=== PATIENT | male | born 1970 | race Caucasian/White ===

== ENCOUNTER 2016-11-14 15:32 | Emergency (ER) | payer BC ==
[~2016-11-14] VITALS: Ht 182.9 cm; Wt 109.3 kg
[~2016-11-14 15:32] MED LIST: ALLOPURINOL300 M1 FT; ELIQUIS5 MG PO; LISINOPRIL10 MG PO; METFORMIN ER500 MG PO; PRAVACHOL20 MG PO
--- OUTSIDE RECORDS SUMMARY | 2016-11-14 15:39 | External Medical Summary Rpt ---
Author Author [employer] Organization [employer] Address Unknown Phone Unavailable Purpose Continuity of Care Document - through 2016
--- OUTSIDE RECORDS SUMMARY | 2016-11-14 15:39 | External Medical Summary Rpt ---
Author Author DEEPALI Calvillo, DEEPALI [employer] Organization [employer] Address Unknown Phone Unavailable
--- OUTSIDE RECORDS SUMMARY | 2016-11-14 15:39 | External Medical Summary Rpt ---
Author Author , Organization [employer] Address Unknown Phone Unavailable Purpose Continuity of Care Document - 01-04-2007 through 2016 Immunization Name Date Route CVX Reacti Commen Provid Is Given on t er Refuse d Hep B, Histor H109 No adult 2007 ical Inform ation - Source Unspec ified Hep B, Histor H109 No adult 2006 ical Inform ation - Source Unspec ified Hep B, Histor H109 No adult 2006 ical Inform ation - Source Unspec ified
--- NOTE | 2016-11-14 15:47 | Urgent Treatment Center Report ---
History of Present Issue Date/Time Seen by Provider 11/14/16 9077 Visit Reason Pt arrived:Walked Presenting Problem:PT C/O FEVER AND CHILLS Location if Accident: Onset of symptoms date/time:/ or onset unknown for:MEDICAL HX UNKNOWN Have you (or family members/close friends) recently traveled outside the [place]? N If Yes, where/when: Have you had exposure to infectious disease within the past month? TB? Other? Specify: Source patient Exam Limitations no limitations Comment 46-year-old male presents for fever, chills, cough, left ear pain ,scratchy throat, body aches, sinus pressure and green nasal congestion for a week or so. Patient states today he woke up and just didn't feel good was that of family gathering family takes his temperature and it was 103.6 he was given 800 mg of ibuprofen. ALLERGIES Coded Allergies: Sulfa (Sulfonamide Antibiotics) (Intermediate, I-HIVES 01/24/16) Penicillins (01/24/16) Home Medications Reported Medications Pravastatin Sodium (Pravachol) 20 MG PO QHS #30 Apixaban (Eliquis) 5 MG PO BID #60 Lisinopril 10 MG PO DAILY #90 Allopurinol 300 MG FT DAILY #90 METFORMIN HCL (Metformin HCl ER) 500 MG PO BID #360 History Medical History General CAD? No Angina: No ID: No Hypertension? Yes Hyperlipidemia? No CHF? No DVT? No PE? No COPD? No Asthma? No Anemia? No GERD? No Gastric ulcers? No GI Bleed? No Hernia? No Thyroid Problems? No Hypothyroidism? No CVA? No Seizures? No Diabetes? Yes Insulin Dependent: No Insulin Pump: No Home FSBS? Yes Renal Insuffiency? No UTI? No Stones? No BPH? No GB Disease: No Nephritic Syndrome? No Asplenia? No Hepatitis? No Sickle Cell Disease? No Arthritis? No Migraines? No Cataracts? No Glaucoma? No MRSA? No HIV? No TB? No Anxiety? No Depression? No Cancer? No Immunization HX DT/Tetanus 1-4 Years Ago Surgical Hx Previous Surgery?Y APPENDECTOMY VASECTOMY Social History Alcohol Alcohol: No Review of Systems All Other Systems Reviewed and Negative Constitutional see HPI, chills, fever ENT see HPI, ear pain. Physical Exam Vital Signs Vital Signs Date Time Temp Pulse Resp B/P Pulse O2 O2 Flow FiO2 Ox Delivery Rate 11/14 1547 98.2 110 16 115/80 96 - WBC >12,000 or <4,000 or 10% bands? 2 or more SIRS Criteria Met? B/P:115/80 MAP:91 Creatinine >2.0? UA output<0.5ml/kg/hr for 2 hrs? Platelet count >100,000? Lactate >2.0mmol/1? INR >1.2 or PTT > than 60 sec? Evidence of Organ Dysfunction? Provider documented clinical suspician of infection? Sepsis Criteria Count: 1 Sepsis Risk: General Appearance normal appearance, mild distress, fever Eye Exam - bilateral eye normal exam, bilateral eye PERRL, bilateral eye EOMI Ear, Nose, Throat abnormal TM (L), sinus pain/drainage, nasal congestion, pharyngeal erythema Neck normal inspection, full range of motion Respiratory Status Yes: trachea midline, chest symmetrical, non tender chest. No: respiratory distress. Lung Sounds bilateral: normal breath sounds, lungs clear. Cardiovascular normal exam, regular rate/rhythm Peripheral Pulses Pulses normal Yes Gastrointestinal normal bowel sounds Neurologic alert, normal exam, oriented x 3 Medical Decision Making LABS/Meds/Orders Pt receiving controlled substance in ED? No Results/Orders Laboratory Tests 11/14/16 1620: Sodium 136, Potassium 4.3, Chloride 99, Carbon Dioxide 27, BUN 16, Creatinine 0.9, Estimated Creat Clear 160, Estimated GFR (MDRD) 91, Glucose 179 H, Calcium 9.2, Total Bilirubin 0.6, AST 19, ALT 37, Alkaline Phosphatase 116, Total Protein 8.0, Albumin 3.7, Globulin 4.3 H, Albumin/Globulin Ratio 0.9 L, WBC 10.7, RBC 5.15, Hgb 13.3 L, Hct 41.8 L, MCV 81.3 L, RDW 15.7, Plt Count 241, MPV 6.1 L, Gran % 80.0, Gran # 8.6 H, Lymphocytes % 13.8, Monocytes % 4.7, Eosinophils % 1.2, Basophils % 0.2, Lymphocytes # 1.5, Monocytes # 0.5, Eosinophils # 0.1, Basophils # 0.0, PUBS MCHC 31.7 L, MCH 25.8 L 11/14/16 1550: Sodium Cancelled, Potassium Cancelled, Chloride Cancelled, Carbon Dioxide Cancelled, BUN Cancelled, Creatinine Cancelled, Estimated Creat Clear Cancelled, Estimated GFR (MDRD) Cancelled, Glucose Cancelled, Calcium Cancelled, Total Bilirubin Cancelled, AST Cancelled, ALT Cancelled, Alkaline Phosphatase Cancelled, Total Protein Cancelled, Albumin Cancelled, Globulin Cancelled, Albumin/Globulin Ratio Cancelled, WBC Cancelled, RBC Cancelled, Hgb Cancelled, Hct Cancelled, MCV Cancelled, RDW Cancelled, Plt Count Cancelled, Gran % Cancelled, Gran # Cancelled, Lymphocytes % Cancelled, Eosinophils % Cancelled, Basophils % Cancelled, Lymphocytes # Cancelled, Eosinophils # Cancelled, Basophils # Cancelled, PUBS MCHC Cancelled, MCH Cancelled, Influenza Type A Ag NOT DETECTED, Influenza Type B Ag NOT DETECTED, Group A Strep Screen NOT DETECTED Orders Procedure Date/time Status CBC WITH AUTO DIFF 11/14 161 Complete CHEM 12 PROFILE 11/14 1610 Complete UTC STREP SCREEN 11/14 1550 Complete UTC FLU A,B 11/14 1550 Complete Departure Departure Time of Disposition 165 Disposition DC Home or Self Care(routine) Clinical Impression Primary Impression: Acute sinusitis Qualifiers: Sinusitis location: maxillary Recurrence: non-recurrent Qualified Code: J01.00 - Acute maxillary sinusitis, unspecified Secondary Impressions: Fever Qualifiers: Fever type: unspecified Qualified Code: R50.9 - Fever, unspecified Condition STABLE Patient Instructions DI for Fever (Symptom) -- Adult, DI for Sinusitis Additional Instructions Tylenol and Motrin as needed for fever or pain. Signs and symptoms worsen return or be seen in the ER follow up with PCP this week Discharge Counseling Counseled pt/family regarding diagnosis, test results, medications/RX, home care, follow up needs Prescriptions Current Visit Scripts Fluticasone Propionate (Flonase Allergy Relief) 9.9 ML NS DAILY 14 Days Azithromycin (Zithromax) 250 MG PO DAILY #6 TAB USE DIRECTED. Comments No work tonight precautions advised at 1651
[2016-11-14] MEDS ORDERED: FLONASE ALLERG9.9 ML NS (16:02)
[2016-11-14] MEDS ORDERED: ZITHROMAX Z-PA250 M2 PO (16:02)
[2016-11-14 16:04] LABS: UTC STREP SCREEN NOT DETECTED (NOTDETECTED)
[2016-11-14 16:38] LABS: HEMOGLOBIN 13.3 g/dL (14.1-18.0); LYMPH # 1.5 K/mm3 (0.7-4.5); LYMPH % 13.8 % (10-50)
[2016-11-14 16:58] VITALS: BP 115/80
== END 2016-11-14 16:58 | disposition home or self-care (01) ==
LOC: UTC 15:32
PROVIDERS: Nurse Practitioner Family
DX: J01.00 Acute maxillary sinusitis, unspecified (principal); I10 Essential (primary) hypertension; E11.9 Type 2 diabetes mellitus without complications

== ENCOUNTER 2017-05-14 21:11 | Observation (INO) | payer BC ==
[~2017-05-14] VITALS: Ht 182.9 cm; Wt 109.9 kg
[~2017-05-14 21:11] MED LIST changes: +FLONASE ALLERG9.9 ML NS; +ZITHROMAX Z-PA250 M2 PO
[2017-05-14 21:14] VITALS: BP 149/105
[2017-05-14] MEDS ORDERED: JARDIANCE25 MG PO (21:23)
[2017-05-14] MEDS ORDERED: ASPIRIN ADULT L81 M2 PO (21:25)
[2017-05-14 21:34] LABS: HEMOGLOBIN 14.6 g/dL (14.1-18.0); LYMPH # 2.5 K/mm3 (0.7-4.5); LYMPH % 31.9 % (10-50)
--- NOTE | 2017-05-14 21:37 | Emergency Room Report ---
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 N Clinical Suspician of Infection? N Mental Status: 1 - Regular (Normal Baseline) Sepsis Risk:Possible Sepsis Risk Have you (or family members/close friends) recently traveled outside the [place]? N If Yes, where/when: Have you had exposure to infectious disease within the past month? N TB? Other? Specify: Source patient, RN notes reviewed, family, old records Exam Limitations no limitations Comment pt with tingling episodes but also with chest pain which was central and described as mm tightness Cardiac Chest Pain Chest pain indicative of cardiac Yes Timing/Duration 1-3 hours, gone now Severity/Quality moderate, tightness Location central Chest Pain Radiation no radiation Activities at Onset light activity Nitro Today/Relief no nitro taken today Aspirin Treatment Today 81 mg x 4, provided by ED Beta tico treatment today no beta tico taken Cardiac risk factors Elevated lipids, Diabetes, + family history Prior Workup/Intervention stress test Timing/Duration this evening Severity moderate ALLERGIES Coded Allergies: Sulfa (Sulfonamide Antibiotics) (Intermediate, I-HIVES 05/14/17) Penicillins (05/14/17) Home Medications Active Scripts Fluticasone Propionate (Flonase Allergy Relief) 9.9 ML NS DAILY 14 Days Prov: 11/14/16 Reported Medications Lisinopril 10 MG PO DAILY #90 Allopurinol 300 MG FT DAILY #90 METFORMIN HCL (Metformin HCl ER) 500 MG PO BID #360 Empagliflozin (Jardiance) 25 MG PO DAILY Aspirin 81 MG PO DAILY History Medical History General CAD? No Angina: No HI: No Hypertension? Yes Hyperlipidemia? No CHF? No DVT? No PE? No COPD? No Asthma? No Anemia? No GERD? No Gastric ulcers? No GI Bleed? No Hernia? No Thyroid Problems? No Hypothyroidism? No CVA? No Seizures? No Diabetes? Yes Insulin Dependent: No Insulin Pump: No Home FSBS? Yes Renal Insuffiency? No End Stage Renal Disease? No UTI? No Stones? No BPH? No GB Disease: No Nephritic Syndrome? No Asplenia? No Hepatitis? No Sickle Cell Disease? No Arthritis? No Migraines? No Cataracts? No Glaucoma? No MRSA? No HIV? No TB? No Anxiety? Yes Depression? No Cancer? No More? Yes Additional hx: A.FIB Immunization Hx DT/Tetanus 1-4 Years Ago Surgical Hx Previous Surgery?Y APPENDECTOMY VASECTOMY Social History Smoking Hx Smoker: Never Smoker Tobacco: No Alcohol Alcohol: No Drugs none Review of Systems All Other Systems Reviewed and Negative Constitutional denies fever Eyes denies drainage ENT denies: ear discharge, epistaxis, throat pain. Respiratory denies cough, denies shortness of breath Cardiovascular chest pain, denies palpitations, denies syncope Gastrointestinal denies abdominal pain, denies diarrhea, denies vomiting Genitourinary denies: dysuria, frequency, hesitancy, hematuria. Musculoskeletal denies back pain, denies joint pain, denies joint swelling, denies neck pain Skin denies rash Psychiatric/Neurological denies seizure Physical Exam Vital Signs Vital Signs Date Time Temp Pulse Resp B/P Pulse O2 O2 Flow FiO2 Ox Delivery Rate 05/14 2224 97 20 140/74 94 05/14 2114 98.1 96 20 149/105 98 - WBC >12,000 or <4,000 or 10% bands? 2 or more SIRS Criteria Met? B/P:140/74 MAP:119 Creatinine >2.0? UA output<0.5ml/kg/hr for 2 hrs? Platelet count >100,000? Lactate >2.0mmol/1? INR >1.2 or PTT > than 60 sec? Evidence of Organ Dysfunction? Provider documented clinical suspician of infection? N Sepsis Criteria Count: 2 Sepsis Risk: Possible Sepsis Risk General Appearance no apparent distress Eye Exam - bilateral eye PERRL, bilateral eye EOMI Ear, Nose, Throat normal ENT inspection Neck supple Respiratory Status No: respiratory distress. Lung Sounds bilateral: lungs clear. 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 No Results/Orders Laboratory Tests 05/14/172124: Sodium 137, Potassium 4.0, Chloride 101, Carbon Dioxide 31, BUN 16, Creatinine 1.1, Estimated Creat Clear 136, Estimated GFR (MDRD) 72, Glucose 181 H, Calcium 9.3, Total Bilirubin 0.4, AST 19, ALT 40, Alkaline Phosphatase 109, Creatine Kinase 80, CK-MB (CK-2) Rel Index 0.6, CK and CKMB Interp < 0.5, Troponin I < 0.02, Total Protein 7.7, Albumin 3.9, Globulin 3.8 H, Albumin/Globulin Ratio 1.0 L, WBC 7.9, RBC 5.27, Hgb 14.6, Hct 43.9, MCV 83.3, RDW 14.6, Plt Count 221 , MPV 7.6, Gran % 61.3, Gran # 4.8, Lymphocytes % 31.9, Monocytes % 5.3, Eosinophils % 1.1, Basophils % 0.3, Lymphocytes # 2.5, Monocytes # 0.4, Eosinophils # 0.1, Basophils # 0.0, PUBS MCHC 33.3, MCH 27.8 Current Medication Orders Sig/Tiara Start time Last Medication Dose Route Stop Time Status Admin Aspirin 243 MG .[ONE TIME] 05/14 2130 CKDr 05/14 PO 2120 Sodium Chloride 10 ML PRN PRN 05/14 2130 AC IV 05/15 2124 Aspirin 0 .STK-MED ONE 05/14 2118 DC .ROUTE Orders Procedure Date/time Status Decision to admit 05/14 2239 Active ELECTROCARDIOGRAM REQUEST 05/14 2131 Active CBC WITH AUTO DIFF 05/14 2127 Complete CARDIAC ENZYMES 05/14 2127 Complete CHEM 12 PROFILE 05/14 2127 Complete CHEST(2 VIEWS-NOT PORTABLE) 05/14 2126 Active IV SALINE LOCK 05/14 2124 Active CM/EKG CM/industrial maintenance tech Rhythm Normal Sinus Rhythm EKG no evid. of ischemic chgs XRAY/CT/US XRAY/CT/US XRAY chest XR interpretation by reviewed by me Xray Results normal/NAD LUCIANA Score for N-Stemi/Angina LUCIANA N-STEMI SCORE LUCIANA N-STEMI SCORE Response Value Age of patient Less than 65 yrs 0 Number of risk factors for CAD Presence of 3 or more 1 Prior coronary artery stenosis (seen in angiography) Less than 50% 0 ST-Segment deviation on ECG (>1 min) Absent 0 Prior aspirin intake ASA intake in last 7 days 1 Severe anginal chest pain 2 or more episodes/24hr 1 Elevated cardiac markers(CK-MB or troponin) Absent 0 Total 3 Risk Stratification 3-4= Medium Risk Patients Departure Departure Time of Disposition 2240 Disposition Still a Patient Clinical Impression Primary Impression: Chest pain Qualifiers: Chest pain type: precordial pain Qualified Code: R07.2 - Precordial pain Secondary Impressions: Diabetes mellitus Qualifiers: Diabetes mellitus type: type 2 Diabetes mellitus complication status: with unspecified complications Diabetes mellitus laborer marine terminal insulin use: unspecified intermediate insulin use status Qualified Code: E11.8 - Type 2 diabetes mellitus with unspecified complications Condition STABLE Referrals Rosendo RODRIGUEZ (Family) discussed with dr chantal AGUERO Critical Care Critical Care No at [id number]
--- OUTSIDE RECORDS SUMMARY | 2017-05-14 21:47 | External Medical Summary Rpt | CCD ---
Author Author , DEEPALI PALUMBO Address Unknown Phone [email or web address] Purpose Continuity of Care Document - 11-14-2016 through 2016 Problems Code Diagnosis DOS Provider Status I48.0 PAROXYSMAL ATRIAL FIBRILLATIO N I48.91 UNSPECIFIED ATRIAL FIBRILLATIO N S46.119A STRAIN OF MUSC/FASC/T END LONG HEAD OF BICEPS, UNSP ARM, INIT Results Labs Lab Lab Date Result Refere Interp Status Commen Order Detail nces retati t Range on CBC w auto diff (05-14-2017 21:25) Automat = 0.0 0-0.2 complet ed 017 K/MM3 ed blood 21:25 basophi l count (count/ vo Baso % = 0.3 % 0.1-2.0 complet 017 ed 21:25 Automat = 0.1 0.0-0.4 complet ed 017 K/mm3 ed blood 21:25 eosinop hil count Automat = 1.1 % 0.1-12. complet ed 017 0 ed blood 21:25 eosinop hils/10 0 leukocy t Blood = 4.8 1.3-8.0 complet granulo 017 K/mm3 ed cytes 21:25 automat ed count (numb Granulo = 61.3 37.0-80 complet cyte 017 % .0 ed percent 21:25 age Blood = 43.9 42.0-52 complet hematoc 017 % .0 ed rit 21:25 (volume fractio n) Blood = 14.6 14.1-18 complet hemoglo 017 g/dL .0 ed bin 21:25 measure ment (mass/v olum Absolut = 2.5 0.7-4.5 complet e 017 K/mm3 ed lymphoc 21:25 yte count Lymphoc 12-02-2 = 31.9 10-50 complet yte 017 % ed count, 21:25 blood, automat ed Mean = 27.8 27-31.2 complet corpusc 017 pg ed ular 21:25 hemoglo bin (MCH) determ Automat = 33.3 31.8-35 complet ed 017 g/dl .4 ed erythro 21:25 cyte mean corpusc ular h Automat = 83.3 82.2-97 complet ed 017 fl .8 ed erythro 21:25 cyte mean corpusc ular v Absolut = 0.4 0.1-1.0 complet e 017 K/mm3 ed monocyt 21:25 e count Miller % = 5.3 % 1.7-9.3 complet 017 ed 21:25 Automat = 7.6 7.4-10. complet ed 017 fl 4 ed blood 21:25 platele t mean volume katelin Blood = 221 142-424 complet platele 017 K/mm3 ed t count 21:25 Red = 5.27 4.6-6.2 complet blood 017 M/mm3 ed cell 21:25 count Automat = 14.6 11.5-17 complet ed 017 % .5 ed erythro 21:25 cyte distrib ution width Blood = 7.9 4.8-10. complet leukocy 017 K/MM3 8 ed timo 21:25 count (number /volume ) Influenza virus A+B Ag [Presence] in Unspecified specimen (11-14-2016 15:50) Influen NOT NOT complet za 017 DETECTE DETECTD ed virus A 15:50 D Ag [Presen ce] in Unspeci fied specime n INFLUEN NOT NOT complet ZA B 017 DETECTE DETECTD ed ANTIGEN 15:50 D Streptococcus pyogenes Ag [Presence] in Unspecified specimen (11-14-2016 15:50) Strepto NOT NOTDETE complet coccus 017 [address]ED ed pyogene 15:50 D s Ag [Presen ce] in Unspeci fied specime n
--- OUTSIDE RECORDS SUMMARY | 2017-05-14 21:47 | External Medical Summary Rpt | CCD ---
Author Author , ENRIKE PALUMBO Address Unknown Phone [email or web address] Immunization Name Date Rout CVX Reac Dose Comm Prov Is Faci e tion ent ider Refu lity Give sed n Hep 01-1 43 999 Hist H109 No H109 B, 8-20 oric adul 08 al t Info rmat ion - Sour ce Unsp ecif ied Hep 09-0 43 999 Hist H109 No H109 B, 7-20 oric adul 07 al t Info rmat ion - Sour ce Unsp ecif ied Hep 07-2 43 999 Hist H109 No H109 B, 5-20 oric adul 07 al t Info rmat ion - Sour ce Unsp ecif ied
--- OUTSIDE RECORDS SUMMARY | 2017-05-14 21:47 | External Medical Summary Rpt ---
Author Author DEEPALI Calvillo, DEEPALI [employer] Organization [employer] Address Unknown Phone Unavailable Results Comprehensive metabolic 2000 panel in Serum or Plasma Observa Value Referen Units Interpr Notes Date tion ce etation Range Albumin/G 1.1 - 1.8 No Low No Hesham 4 lobulin informati informati 2017 4:20 [Mass on in on in PM ratio] in source source Serum or data data Plasma Albumin 3.4 - 5.0 gm/dL Normal No Hesham 4 [Mass/vol informati 2017 4:20 ume] in on in PM Serum or source Plasma data Alkaline 46 - 116 U/L Normal No Hesham 4 phosphata informati 2017 4:20 se on in PM [Enzymati source c data activity/ volume] in Serum or Plasma Bilirubin 0.2 - 1.0 mg/dL Normal No Hesham 4 .total informati 2017 4:20 [Mass/vol on in PM ume] in source Serum or data Plasma Urea 7 - 18 mg/dL Normal No Hesham 4 nitrogen informati 2017 4:20 [Mass/vol on in PM ume] in source Serum or data Plasma Calcium 8.5 - mg/dL Normal No Hesham 4 [Mass/vol 10.1 informati 2017 4:20 ume] in on in PM Serum or source Plasma data Chloride 98 - 107 mmoL/L Normal No Hesham 4 [Moles/vo informati 2017 4:20 lume] in on in PM Serum or source Plasma data Carbon 21.0 - mmoL/L Normal No Hesham 4 dioxide, 32.0 informati 2017 4:20 total on in PM [Moles/vo source lume] in data Serum or Plasma Creatinin 0.70 - mg/dL Normal No Hesham 4 e 1.30 informati 2017 4:20 [Mass/vol on in PM ume] in source Serum or data Plasma Creatinin 50 - 200 ML/MIN Normal No Hesham 4 e renal informati 2017 4:20 clearance on in PM source predicted data by Cockcroft -Gault formula Estimated >60 ML/MIN No REFERENCE Hesham 4 informati RANGE: 2017 4:20 glomerula on in >60 PM r source ML/MIN/1. filtratio data 73 SQUARE n rate METERSIf (GF this patient is -A merican, then multiply theresult by 1.210. Globulin 1.3 - 3.2 gm/dL High No Nov 4 [Mass/vol informati 2016 4:20 ume] in on in PM Serum source data Glucose 74 - 106 mg/dL High No Nov 4 [Mass/vol informati 2016 4:20 ume] in on in PM Serum or source Plasma data Potassium 3.5 - 5.1 mmoL/L Normal No Nov 142016 4:20 [Moles/vo on in PM lume] in source Serum or data Plasma Sodium 136 - 145 mmoL/L Normal No Nov 4 [Moles/vo inform2016 4:20 lume] in on in PM Serum or source Plasma data Aspartate 15 - 37 U/L Normal No Nov 14 inform2016 4:20 aminotran on in PM sferase source [Enzymati data c activity/ volume] in Serum or Plasma Alanine 12 - 78 U/L Normal No Nov 14 aminotran inform2016 4:20 sferase on in PM [Enzymati source c data activity/ volume] in Serum or Plasma Protein 6.4 - 8.2 gm/dL Normal No Nov 4 [Mass/vol informati 2016 4:20 ume] in on in PM Serum or source Plasma data CBC W Auto Differential panel in Blood Observa Value Referen Units Interpr Notes Date tion ce etation Range Basophils 0 - 0.2 K/MM3 Normal No Nov 14 inform2016 4:20 [#/volume on in PM ] in source Blood by data Automated count Basophils 0.1 - 2.0 % Normal No Nov 14 inform2016 4:20 leukocyte on in PM s in source Blood by data Automated count Eosinophi 0.0 - 0.4 K/mm3 Normal No Nov 14 ls informati 2016 4:20 [#/volume on in PM ] in source Blood by data Automated count Eosinophi 0.1 - % Normal No Nov 14 ls/100 12.0 informati 2016 4:20 leukocyte on in PM s in source Blood by data Automated count Granulocy 1.3 - 8.0 K/mm3 High No Nov 4 timo inform2016 4:20 [#/volume on in PM ] in source Blood by data Automated count Granulocy 37.0 - % Normal No Hesham 4 timo/100 80.0 informati 2017 4:20 leukocyte on in PM s in source Blood by data Automated count Hematocri 42.0 - % Low No Hesham 4 t [Volume 52.0 informati 2017 4:20 on in PM Fraction] source of Blood data Hemoglobi 14.1 - g/dL Low No Hesham 4 n 18.0 informati 2017 4:20 [Mass/vol on in PM ume] in source Blood data Lymphocyt 0.7 - 4.5 K/mm3 Normal No Hesham 4 es informati 2017 4:20 [#/volume on in PM ] in source Unspecifi data ed specimen by Automated count Lymphocyt 10 - 50 % Normal No Hesham 4 es informati 2017 4:20 [#/volume on in PM ] in source Unspecifi data ed specimen by Automated count Erythrocy 27 - 31.2 pg Low No Hesham 4 te mean informati 2017 4:20 corpuscul on in PM ar source hemoglobi data n [Entitic mass] Erythrocy 31.8 - g/dl Low No Hesham 4 te mean 35.4 informati 2017 4:20 corpuscul on in PM ar source hemoglobi data n concentra tion [Mass/vol ume] by Automated count Erythrocy 82.2 - fl Low No Hesham 4 te mean 97.8 informati 2017 4:20 corpuscul on in PM ar volume source [Entitic data volume] by Automated count Monocytes 0.1 - 1.0 K/mm3 Normal No Hesham 4 informati 2017 4:20 [#/volume on in PM ] in source Blood by data Automated count Monocytes 1.7 - 9.3 % Normal No Hesham 4 /100 informati 2017 4:20 leukocyte on in PM s in source Blood by data Automated count Platelet 7.4 - fl Low No Hesham 4 mean 10.4 informati 2017 4:20 volume on in PM [Entitic source volume] data in Blood by Automated count Platelets 142 - 424 K/mm3 Normal No Hesham 4 informati 2017 4:20 [#/volume on in PM ] in source Blood data Erythrocy 4.6 - 6.2 M/mm3 Normal No Hesham 4 timo informati 2017 4:20 [#/volume on in PM ] in source Amniotic data fluid Erythrocy 11.5 - % Normal No Hesham 4 te 17.5 informati 2017 4:20 distribut on in PM ion width source [Entitic data volume] by Automated count Leukocyte 4.8 - K/MM3 Normal No Hesham 4 s 10.8 informati 2017 4:20 [#/volume on in PM ] in source Blood data Influenza virus A+B Ag [Presence] in Unspecified specimen Observa Value Referen Units Interpr Notes Date tion ce etation Range Influen NOT NOT No No No Nov 4 za DETECTE DETECTD informa informa informa 2017 virus A D tion in tion in tion in 3:50 PM Ag source source source [Presen data data data ce] in Unspeci fied specime n INFLUEN NOT NOT No No LOT # Nov 4 ZA B DETECTE DETECTD informa informa @[id number] ANTIGEN D tion in tion in 5 EXP 3:50 PM source source DATE data data @2019-0 9-30 Streptococcus pyogenes Ag [Presence] in Unspecified specimen Observa Value Referen Units Interpr Notes Date tion ce etation Range Strepto NOT NOTDETE No No LOT # Hesham 4 coccus DETECTE CTED informa informa N/A EXP 2017 pyogene D tion in tion in DATE 3:50 PM s Ag source source N/A [Presen data data ce] in Unspeci fied specime n
--- OUTSIDE RECORDS SUMMARY | 2017-05-14 21:47 | External Medical Summary Rpt ---
Author Author DEEPALI Calvillo, DEEPALI [employer] Organization [employer] Address Unknown Phone Unavailable [...] 4 ZA B DETECTE DETECTD informa informa @[id number] ANTIGEN D tion in tion in 5 [...]
--- OUTSIDE RECORDS SUMMARY | 2017-05-14 21:47 | External Medical Summary Rpt | CCD ---
Author Author , ENRIKE PALUMBO Address Unknown Phone .Viewdle Immunization Name Date Rout CVX Reac Dose [...]
--- OUTSIDE RECORDS SUMMARY | 2017-05-14 21:47 | External Medical Summary Rpt | CCD ---
Author Author , DEEPALI PALUMBO Address Unknown Phone [email or web address] Purpose Continuity of Care Document - 11-14-2016 [...] 017 K/mm3 ed monocyt 21:25 e count Irwin % = 5.3 % 1.7-9.3 complet 017 [...]
[2017-05-14 22:00] LABS: BUN 16 mg/dL (7-18)
[2017-05-14 22:01] LABS: GFR (ESTIMATED) 72 ML/MIN (>60)
--- OUTSIDE RECORDS SUMMARY | 2017-05-14 22:44 | External Medical Summary Rpt | CCD ---
Author Author , DEEPALI PALUMBO Address Unknown Phone [email or web address] Purpose Continuity of Care Document - 11-14-2016 [...] 017 K/mm3 ed monocyt 21:25 e count [place] % = 5.3 % 1.7-9.3 complet 017 [...] ed timo 21:25 count (number /volume ) Cardiac enzymes (05-14-2017 21:25) Serum = 0.6 0-4.0 complet or 017 U/L ed plasma 21:25 creatin e kinase MB (CK-M Serum < 0.5 0.0-3.6 complet or 017 ng/mL ed plasma 21:25 creatin e kinase MB measu Serum = 80 39-308 complet or 017 U/L ed plasma 21:25 creatin e kinase measure m Serum < 0.02 0.00-0. complet or 017 ng/mL 06 ed plasma 21:25 troponi n i.cardi ac measu Comprehensive metabolic panel (05-14-2017 21:25) Serum = 1.0 1.1-1.8 complet or 017 ed plasma 21:25 albumin /globul in mass ra Serum = 3.9 3.4-5.0 complet or 017 gm/dL ed plasma 21:25 albumin measure ment (mas Serum = 109 46-116 complet or 017 U/L ed plasma 21:25 alkalin e phospha tase katelin Serum = 0.4 0.2-1.0 complet or 017 mg/dL ed plasma 21:25 total bilirub in measure m Serum = 16 7-18 complet or 017 mg/dL ed plasma 21:25 urea nitroge n measure men Serum = 9.3 8.5-10. complet or 017 mg/dL 1 ed plasma 21:25 calcium measure ment (mas Serum = 101 98-107 complet or 017 mmoL/L ed plasma 21:25 chlorid e measure ment (mo Carbon = 31 21.0-32 complet dioxide 017 mmoL/L .0 ed 21:25 measure ment Serum = 1.1 0.70-1. complet or 017 mg/dL 30 ed plasma 21:25 creatin ine measure ment ( Estimat = 136 50-200 complet ion of 017 ML/MIN ed creatin 21:25 ine renal clearan ce Estimat = 72 >60 complet ed 017 ML/MIN ed glomeru 21:25 lar filtrat ion rate (GF Comment: REFERENCE RANGE: >60 ML/MIN/1.73 SQUARE METERS Comment: If this patient is -Palestinian, then multiply the Comment: result by 1.210. Serum = 3.8 1.3-3.2 complet globuli 017 gm/dL ed n 21:25 measure ment (mass/v olume) Serum = 181 74-106 complet or 017 mg/dL ed plasma 21:25 glucose measure ment (mas Serum = 4.0 3.5-5.1 complet potassi 017 mmoL/L ed um 21:25 measure ment Serum = 137 136-145 complet sodium 017 mmoL/L ed measure 21:25 ment Serum 12-02-2 = 19 15-37 complet or 017 U/L ed plasma 21:25 asparta te aminotr ansfera ALT = 40 12-78 complet (SGPT) 017 U/L ed ser/yimi 21:25 s Protein = 7.7 6.4-8.2 complet total 017 gm/dL ed ser/yimi 21:25 s Influenza virus A+B Ag [Presence] in Unspecified [...]
--- OUTSIDE RECORDS SUMMARY | 2017-05-14 22:44 | External Medical Summary Rpt | CCD ---
Author Author , DEEPALI PALUMBO Address Unknown Phone [email or web address] Purpose Continuity of Care Document - 11-14-2016 [...] 017 K/mm3 ed monocyt 21:25 e count Bell % = 5.3 % 1.7-9.3 complet 017 [...] SQUARE METERS Comment: If this patient is -Nauruan, then multiply the Comment: result by 1.210. [...]
--- OUTSIDE RECORDS SUMMARY | 2017-05-14 22:45 | External Medical Summary Rpt | CCD ---
Demographics Preferred Language Mongolian Marital Status Unknown Synagogue Affiliation Unknown Race Unknown Ethnic Group Unknown Author Author , ENRIKE PALUMBO Address Unknown Phone Immunization Unable to retrieve immunization data due to connection failure with Immunization Registry. Please try again later.
--- OUTSIDE RECORDS SUMMARY | 2017-05-14 22:45 | External Medical Summary Rpt ---
Author Author DEEPALI Calvillo, [employer]EEP[employer]I [employer] Organization [employer] Address Unknown Phone Unavailable Results CBC W Auto Differential panel in Blood Observa Value Referen Units Interpr Notes Date tion ce etation Range Basophils 0 - 0.2 K/MM3 Normal No Dec 2 informati 2017 9:25 [#/volume on in PM ] in source Blood by data Automated count Basophils 0.1 - 2.0 % Normal No Dec 2 /100 informati 2017 9:25 leukocyte on in PM s in source Blood by data Automated count Eosinophi 0.0 - 0.4 K/mm3 Normal No May 2 ls informati 2017 9:25 [#/volume on in PM ] in source Blood by data Automated count Eosinophi 0.1 - % Normal No May 2 ls/100 12.0 informati 2017 9:25 leukocyte on in PM s in source Blood by data Automated count Granulocy 1.3 - 8.0 K/mm3 Normal No May 2 timo informati 2017 9:25 [#/volume on in PM ] in source Blood by data Automated count Granulocy 37.0 - % Normal No May 2 timo/100 80.0 informati 2017 9:25 leukocyte on in PM s in source Blood by data Automated count Hematocri 42.0 - % Normal No May 2 t [Volume 52.0 informati 2017 9:25 on in PM Fraction] source of Blood data Hemoglobi 14.1 - g/dL Normal No May 2 n 18.0 informati 2017 9:25 [Mass/vol on in PM ume] in source Blood data Lymphocyt 0.7 - 4.5 K/mm3 Normal No May 2 es informati 2017 9:25 [#/volume on in PM ] in source Unspecifi data ed specimen by Automated count Lymphocyt 10 - 50 % Normal No May 2 es informati 2017 9:25 [#/volume on in PM ] in source Unspecifi data ed specimen by Automated count Erythrocy 27 - 31.2 pg Normal No May 2 te mean informati 2016 9:25 corpuscul on in PM ar source hemoglobi data n [Entitic mass] Erythrocy 31.8 - g/dl Normal No May 14 te mean 35.4 informati 2016 9:25 corpuscul on in PM ar source hemoglobi data n concentra tion [Mass/vol ume] by Automated count Erythrocy 82.2 - fl Normal No May 2 te mean 97.8 informati 2016 9:25 corpuscul on in PM ar volume source [Entitic data volume] by Automated count Monocytes 0.1 - 1.0 K/mm3 Normal No May 2 informati 2016 9:25 [#/volume on in PM ] in source Blood by data Automated count Monocytes 1.7 - 9.3 % Normal No May 2 /100 informati 2016 9:25 leukocyte on in PM s in source Blood by data Automated count Platelet 7.4 - fl Normal No May 14 mean 10.4 informati 2016 9:25 volume on in PM [Entitic source volume] data in Blood by Automated count Platelets 142 - 424 K/mm3 Normal No May 2 informati 2016 9:25 [#/volume on in PM ] in source Blood data Erythrocy 4.6 - 6.2 M/mm3 Normal No May 2 timo informati 2016 9:25 [#/volume on in PM ] in source Amniotic data fluid Erythrocy 11.5 - % Normal No May 2 te 17.5 informati 2016 9:25 distribut on in PM ion width source [Entitic data volume] by Automated count Leukocyte 4.8 - K/MM3 Normal No May 2 s 10.8 informati 2016 9:25 [#/volume on in PM ] in source Blood data Comprehensive metabolic 2000 panel in Serum or Plasma Observa Value Referen Units Interpr Notes Date tion ce etation Range Albumin/G 1.1 - 1.8 No Low No Nov 14 lobulin informati informati 2016 4:20 [Mass on in on in PM ratio] in source source Serum or data data Plasma Albumin 3.4 - 5.0 gm/dL Normal No Nov 14 [Mass/vol informati 2017 4:20 ume] in on in PM Serum or source Plasma data Alkaline 46 - 116 U/L Normal No Nov 14 phosphata informati 2017 4:20 se on in [...] Globulin 1.3 - 3.2 gm/dL High No H[place] 4 [Mass/vol informati 2016 4:20 ume] in on in PM Serum source data Glucose 74 - 106 mg/dL High No [place] 4 [Mass/vol informati 2017 4:20 ume] in on in PM Serum or source Plasma data Potassium 3.5 - 5.1 mmoL/L Normal No [place]ham 4 informati 2017 4:20 [Moles/vo on in PM lume] in source Serum or data Plasma Sodium 136 - 145 mmoL/L Normal No [place]ham 4 [Moles/vo informati 2017 4:20 lume] in on in PM Serum or source Plasma data Aspartate 15 - 37 U/L Normal No [place]ham 4 informati 2017 4:20 aminotran on in PM sferase source [Enzymati data c activity/ volume] in Serum or Plasma Alanine 12 - 78 U/L Normal No [place]ham 4 aminotran informati 2017 4:20 sferase on in PM [Enzymati source c data activity/ volume] in Serum or Plasma Protein 6.4 - 8.2 gm/dL Normal No [place] 4 [Mass/vol informati 2017 4:20 ume] in on in PM Serum or source Plasma data CBC W Auto Differential panel in Blood Observa Value Referen Units Interpr Notes Date tion ce etation Range Basophils 0 - 0.2 K/MM3 Normal No [place] 4 informati 2016 4:20 [#/volume on in PM ] in source Blood by data Automated count Basophils 0.1 - 2.0 % Normal No [place] 4 /100 informati 2017 4:20 leukocyte on in PM s in source Blood by data Automated count Eosinophi 0.0 - 0.4 K/mm3 Normal No [place] 4 ls informati 2017 4:20 [#/volume on in PM ] in source Blood by data Automated count Eosinophi 0.1 - % Normal No [place] 4 ls/100 12.0 informati 2016 4:20 leukocyte on in PM s in source Blood by data Automated count Granulocy 1.3 - 8.0 K/mm3 High No [place] 4 timo informati 2017 4:20 [#/volume on in PM ] in source Blood by data Automated count Granulocy 37.0 - % Normal No [place] 4 timo/100 80.0 informati 2017 4:20 leukocyte on in PM s in source Blood by data Automated count Hematocri 42.0 - % Low No Nov 4 t [Volume 52.0 informati 2017 4:20 on in PM Fraction] source of Blood data Hemoglobi 14.1 - g/dL Low No Nov 4 n 18.0 informati 2016 4:20 [Mass/vol on in PM ume] in [...] Low No [place] 4 te mean 35.4 inform2016 4:20 corpuscul on in PM ar source hemoglobi data n concentra tion [Mass/vol ume] by Automated count Erythrocy 82.2 - fl Low No Nov 4 te mean 97.8 inform2016 4:20 corpuscul on in PM ar volume source [Entitic data volume] by Automated count Monocytes 0.1 - 1.0 K/mm3 Normal No Nov 4 inform2016 4:20 [#/volume on in PM ] in source Blood by data Automated count Monocytes 1.7 - 9.3 % Normal No Nov 4 /100 informati 2016 4:20 leukocyte on in PM s in source Blood by data Automated count Platelet 7.4 - fl Low No Nov 4 mean 10.4 informati 2016 4:20 volume on in PM [Entitic source volume] data in Blood by Automated count Platelets 142 - 424 K/mm3 Normal No Nov 4 inform2016 4:20 [#/volume on in PM ] in source Blood data Erythrocy 4.6 - 6.2 M/mm3 Normal No Nov 4 timo informati 2017 4:20 [#/volume on in PM ] in source Amniotic data fluid Erythrocy 11.5 - % Normal No Nov 4 te 17.5 informati 2016 4:20 distribut on in PM ion width source [Entitic data volume] by Automated count Leukocyte 4.8 - K/MM3 Normal No Nov 4 s 10.8 inform2016 4:20 [#/volume on in PM ] [...] 4 ZA B DETECTE DETECTD informa informa @[id number] ANTIGEN D tion in tion in 5 EXP 3:50 PM source source DATE data data @2019-0 9-30 Streptococcus pyogenes Ag [Presence] in Unspecified specimen Observa Value Referen Units Interpr Notes Date tion ce etation Range Strepto NOT NOTDETE No No LOT # Nov 4 coccus DETECTE CTED informa informa N/A EXP 2017 pyogene D tion in tion in DATE 3:50 PM s Ag source source N/A [Presen data data ce] in Unspeci fied specime n
--- OUTSIDE RECORDS SUMMARY | 2017-05-14 22:45 | External Medical Summary Rpt ---
Author Author DEEPALI Calvillo, DEEP[employer]I [employer] Organization [employer] Address Unknown Phone Unavailable Results CBC [...] 4 ZA B DETECTE DETECTD informa informa @[id number] ANTIGEN D tion in tion in 5 [...]
--- OUTSIDE RECORDS SUMMARY | 2017-05-14 22:45 | External Medical Summary Rpt | CCD ---
Demographics Preferred Language Serbian Marital Status Unknown Gnosticist Affiliation Unknown Race Unknown Ethnic Group Unknown Author Author , ENRIKE PALUMBO Address Unknown Phone Immunization Unable to retrieve immunization data due to connection failure with Immunization Registry. Please try again later.
[2017-05-14 23:37] VITALS: BP 117/67
[2017-05-14 23:49] VITALS: BP 117/67
[2017-05-15 03:49] VITALS: BP 102/64
[2017-05-15 04:38] LABS: HEMOGLOBIN 14.3 g/dL (14.1-18.0); LYMPH # 2.2 K/mm3 (0.7-4.5); LYMPH % 26.4 % (10-50)
[2017-05-15 04:56] LABS: BUN 16 mg/dL (7-18)
[2017-05-15 04:57] LABS: GFR (ESTIMATED) 91 ML/MIN (>60)
[2017-05-15 07:45] VITALS: BP 103/61
[2017-05-15] MEDS ORDERED: FLUOXETINE20 M1 PO (07:59)
[2017-05-15] MEDS ORDERED: BUSPAR 10MG TAB10 MG PO (07:59)
--- NOTE | 2017-05-15 08:05 | Discharge Summary Standard ---
Demographics: Admit date: 05/14/17 Chief complaint: Tingling and chest pain PRIMARY DIAGNOSIS: CHEST PAIN Allergies: Coded Allergies: Sulfa (Sulfonamide Antibiotics) (Intermediate, I-HIVES 05/14/17) Penicillins (05/14/17) History of present illness: History of present illness: 46-year-old type II diabetic who presented to the emergency department yesterday evening after suffering an episode of tingling "in my thorax" while he and his are shopping at [employer] yesterday. He thought it might of been related to anxiety-he's been going through some stress lately while he and his her purchasing some property in addition to his workload and routine life stressors-and went home to rest. He then felt like he had some extra gas and the top of the stomach, and felt a little short of breath. Came to the emergency department, and because of his history of diabetes and possibility of chest pain issues he was admitted overnight for serial enzymes and cardiac monitoring. Of note patient has had a cardiac workup with an brineyard supervisor in [place], with a stress test that he believes was a imaging study that involved a nuclear medicine camera that was reportedly normal. He also notes that about 3 months ago he stopped taking fluoxetine and BuSpar for his ongoing anxiety disorder. He thinks that most of his problems yesterday were related to anxiety. This morning is without complaints and rested comfortably. He's been able to get up and move around to the restroom without shortness of air or chest pain or discomfort. Of note he has a remote history of atrial fibrillation, status post cardioversion, but does not feel like he's had any palpitations or skipped beats. Past medical history: Family HX Diabetes Yes CAD No Hypertension Yes Hyperlipidemia No Cancer No TB No Immunization HX DT/Tetanus 1-4 Years Ago Flu 2016-18FSN Pneumonia Never Had TB Test in last year No General CAD? No Angina: No PA: No Hypertension? Yes Hyperlipidemia? No CHF? No DVT? No PE? No COPD? No Asthma? No Anemia? No GERD? No Gastric ulcers? No GI Bleed? No Hernia? No Thyroid Problems? No Hypothyroidism? No CVA? No Seizures? No Diabetes? Yes Insulin Dependent: No Insulin Pump: No Home FSBS? Yes Renal Insuffiency? No UTI? No Stones? No BPH? No GB Disease: No Nephritic Syndrome? No Asplenia? No Hepatitis? No Sickle Cell Disease? No Arthritis? No Migraines? No Cataracts? No Glaucoma? No MRSA? No HIV? No TB? No Anxiety? Yes Depression? No Cancer? No More? Yes Additional hx: A.FIB -- status post electrical cardioversion several years ago Past Surgical HX Previous Surgery?Y APPENDECTOMY VASECTOMY Current home meds: Active Scripts Fluticasone Propionate (Flonase Allergy Relief) 9.9 ML NS DAILY 14 Days Prov: 11/14/16 Reported Medications Lisinopril 10 MG PO DAILY #90 Allopurinol 300 MG FT DAILY #90 METFORMIN HCL (Metformin HCl ER) 500 MG PO BID #360 Empagliflozin (Jardiance) 25 MG PO DAILY Aspirin 81 MG PO DAILY Social Hx: Smoking HX Tobacco No Alcohol Alcohol: No Hx of Drug Use Drug Use? No Patien't marital status is Patient's support system is excellent Review of systems: Constitutional weakness. No: fever, malaise. Respiratory No: cough, orthopnea, shortness of breath, SOB with excertion. Cardiovascular see HPI Gastrointestinal/Abdominal see HPI Genitourinary No: no symptoms reported. Musculoskeletal No: no symptoms reported. Neurological No: see HPI. Exam: Lab data for last 24 hours: Laboratory Tests 05/15/17 0646: POC Glucose 134 H 05/15/17 0410: Sodium 139, Potassium 4.1, Chloride 104, Carbon Dioxide 29, BUN 16, Creatinine 0.9, Estimated Creat Clear 161, Estimated GFR (MDRD) 91, Glucose 138 H, Calcium 9.0, Creatine Kinase 65, CK-MB (CK-2) Rel Index 0.8, CK and CKMB Interp < 0.5, Troponin I < 0.02, WBC 8.4, RBC 5.09, Hgb 14.3, Hct 42.9, MCV 84.3, RDW 14.8, Plt Count 214, MPV 7.5, Gran % 65.2, Gran # 5.4, Lymphocytes % 26.4, Monocytes % 6.3, Eosinophils % 1.7, Basophils % 0.3, Lymphocytes # 2.2, Monocytes # 0.5, Eosinophils # 0.1, Basophils # 0.0, PUBS MCHC 33.2, MCH 28.0 05/15/17 0100: Creatine Kinase 74, CK-MB (CK-2) Rel Index 0.7, CK and CKMB Interp < 0.5, Troponin I < 0.02 05/14/172124: Triglycerides 329 H, Cholesterol 205 H, LDL Cholesterol 106.2, VLDL Cholesterol 65.8 H, HDL Cholesterol 33.0 L 05/14/172124: Sodium 137, Potassium 4.0, Chloride 101, Carbon Dioxide 31, BUN 16, Creatinine 1.1, Estimated Creat Clear 136, Estimated GFR (MDRD) 72, Glucose 181 H, Calcium 9.3, Total Bilirubin 0.4, AST 19, ALT 40, Alkaline Phosphatase 109, Creatine Kinase 80, CK-MB (CK-2) Rel Index 0.6, CK and CKMB Interp < 0.5, Troponin I < 0.02, Total Protein 7.7, Albumin 3.9, Globulin 3.8 H, Albumin/Globulin Ratio 1.0 L, WBC 7.9, RBC 5.27, Hgb 14.6, Hct 43.9, MCV 83.3, RDW 14.6, Plt Count 221 , MPV 7.6, Gran % 61.3, Gran # 4.8, Lymphocytes % 31.9, Monocytes % 5.3, Eosinophils % 1.1, Basophils % 0.3, Lymphocytes # 2.5, Monocytes # 0.4, Eosinophils # 0.1, Basophils # 0.0, PUBS MCHC 33.3, MCH 27.8 Admission vital signs: 1ST Vital Signs Result Date Time Pulse Ox 98 05/14 2114 B/P 149/105 05/14 2114 Temp 98.1 05/14 2114 Pulse 96 05/14 2114 Resp 20 05/14 2114 O2 Delivery ROOM AIR 05/14 2337 Exam General appearance: normal appearance, alert, awake Eyes: normal exam, anicteric ENT: normal exam, mucous membranes moist Neck: normal inspection, non-tender, no carotid bruit, no JVD Cardiovascular: normal exam Respiratory: normal exam, clear to auscultation ABD: normal exam, non-distended, normal bowel sounds Genitourinary: normal voiding & quantity Extremities: normal exam Musculoskeletal: normal exam Skin: normal exam, intact, normal color Neuro: normal exam, alert, no deficit Hospital Course Hospital Course: Patient was admitted overnight, patient had negative cardiac enzymes and normal electrocardiogram tracings. This morning the patient is well, please see my history of present illness for details. Patient will be discharged home with BuSpar prescription, he will restart fluoxetine that he has at home, and continue his aspirin therapy. I've encouraged him to see his family doctor in 7-10 days, and recommended rest today off work. I reviewed with him signs/symptoms of cardiac issues and when to return to the emergency department. Medications Medications: Discharge meds are as noted. Follow up Follow up in office in: 9 DAYS with: Rosendo RODRIGUEZ at [phone]
[2017-05-15 08:35] VITALS: BP 103/61
--- NOTE | 2017-05-15 09:17 | RADIOLOGY REPORT PS360 ---
CHEST(2 VIEWS-NOT PORTABLE) Ordering physician: Kwan Langston MD Age: 46 years Male INDICATION: chest symptomsCHEST PAIN PROCEDURE: CHEST(2 VIEWS-NOT PORTABLE) FINDINGS: Lungs well expanded and clear with nothing definitely acute. There is perhaps subtle coarsening central markings bilaterally, could reflect history smoking. With this Upper normal markings at the suprahilar regions bilaterally but more likely reflecting subtle chronic changes doubt early infiltrate No pneumothorax. No pleural effusion. Heart normal size. Normal pulmonary vascularity. Hilar and mediastinal structures appear satisfactory. Chest wall & T-spine unremarkable.. IMPRESSION ----- Nothing definitely acute no focal pneumonia. No pneumothorax.
== END 2017-05-15 08:40 | disposition home or self-care (01) ==
LOC: ER 21:11 → 2ND 22:41
PROVIDERS: Emergency Medicine
DX: R07.2 Precordial pain (principal); I10 Essential (primary) hypertension; E11.9 Type 2 diabetes mellitus without complications; F41.9 Anxiety disorder, unspecified; Z88.0 Allergy status to penicillin; Z88.2 Allergy status to sulfonamides; Z91.14 Patient's other noncompliance with medication regimen; Z83.3 Family history of diabetes mellitus; Z82.49 Family history of ischemic heart disease and other diseases of the circulatory system; Z79.84 Long term (current) use of oral hypoglycemic drugs; Z79.82 Long term (current) use of aspirin; Z79.51 Long term (current) use of inhaled steroids; Z79.899 Other long term (current) drug therapy
CPT/HCPCS: G0378